=== PATIENT | male | born 1980 | race Caucasian/White ===

== ENCOUNTER 2021-02-14 13:33 | Emergency (ER) | payer MEDICAID ==
[2021-02-14] MEDS ORDERED: Cyclobenzaprine 10 MG Tab PO ONE (13:34)
--- NOTE | 2021-02-14 14:10 | EDM.PDOC ---
ED HPI GENERAL MEDICAL PROBLEM - General Chief Complaint: Headache Stated Complaint: FALL AT HOME Time Seen by Provider: 02/14/21 14:07 Source of Information: Reports: Patient History Limitations: Reports: No Limitations - History of Present Illness INITIAL COMMENTS - FREE TEXT/NARRATIVE: 40-year-old male who was in the bucket of a front end stock unloader that was raised up about 10-11 feet so that he could reach something on the second story of his house to try to repair this area. He reports that his son was driving the front end stock unloader and the clutch slipped and the front end stock unloader lurched patient lost his balance and fell out of the front end stock unloader landing on his left side and striking his head on the ground. He states that he did catch himself and slow the fall but still fell directly on his left side and hit his head. There was no loss of consciousness for a brief period of time. Since then, he has noted pain in his head and also more pain in his left lower back and midline as well as left flank area. He did have loss of consciousness and he has pain along the left side of his head. And his left lower back and midline back as well as his left flank. He has some pain in the left hip but he is ambulatory. He rates that pain as a 8-9/10 and it is worse with movement. It is better when he is at rest. It is a sharp pain with muscle spasm. He has noted no blood in his urine. This occurred approximately 10:30 AM today. He reports the pain has improved somewhat since it began but the loss of consciousness the persisting pain in his lower back and his side and the length of the fall were very concerning to the patient and to his and that causes him to present for evaluation. He has had some nausea but no vomiting. He also reports that he is sweating but he states he "sweats all the time" and he doesn't really feel that this is much different. He has no localized area of weakness or numbness. He presents to the emergency department via private vehicle via his and he ambulates into the emergency department. There are no other associated signs or symptoms. There are no other modifying factors. Onset: Today (10:30 AM) Duration: Constant Location: Reports: Head, Back, Pelvis, Other (Left flank) Quality: Reports: Sharp, Other (Spasm-like) Severity: Moderate (to severe.) Improves with: Reports: Rest Worsens with: Reports: Other (Palpation), Movement Context: Reports: Trauma Associated Symptoms: Reports: No Other Symptoms Treatments PNEUMATIC PRESS HAND: Reports: NSAIDS (Ibuprofen) Lower Back Pain Score (Numeric/FACES): 9 - Related Data Allergies Allergy/AdvReac Type Severity Reaction Status Date / Time No Known Allergies Allergy Verified 02/14/21 14:00 Home Meds: Home Meds Cyclobenzaprine [Flexeril] 10 mg PO TID PRN #8 tab 02/14/21 [Rx] Past Medical History Psychiatric History: Reports: Anxiety, Depression - Past Surgical History HEENT Surgical History: Reports: Naso-Sinus Surgery, Tonsillectomy Social & Family History - Tobacco Use Tobacco Use Status *Q: (Nonsmoker) Tobacco Use Comment: Nonsmoker - Caffeine Use Caffeine Use: Reports: Soda - Alcohol Use Days Per Week of Alcohol Use: 3 Number of Drinks Per Day: 3 Total Drinks Per Week: 9 Date of Last Drink: 02/13/21 - Recreational Drug Use Recreational Drug Use: No - Living Situation & Occupation Living situation: Reports: 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 Denies: Abdominal Pain, Vomiting : Reports: Flank Pain. Denies: Discharge, Dysuria Musculoskeletal: Reports: Back Pain Skin: Reports: Other (The patient is sweating. It is not a cold sweat.). Denies: Rash, Wound Neurological: Reports: Headache, Other (He did have loss of consciousness for 5 seconds.) Hematologic/Lymphatic: Denies: Easy Bleeding, Easy Bruising ED EXAM, GENERAL - Physical Exam Exam: See Below Exam Limited By: No Limitations General Appearance: Alert, Moderate Distress (Appears in some pain. He is awake, alert and appropriately responsive and interactive.), Obese Eye Exam: Bilateral Eye: EOMI, Normal Inspection, PERRL Ears: Normal External Exam, Hearing Grossly Normal Ear Exam: Bilateral Ear: Auricle Normal Nose: Normal Inspection, Normal Mucosa, No Blood Throat/Mouth: Normal Voice, No Airway Compromise, Inflammation, Other (Moist membranes) Neck: Normal Inspection, Supple, Non-Tender Respiratory/Chest: No Respiratory Distress, Lungs Clear, Normal Breath Sounds, No Accessory Muscle Use, Chest Non-Tender Cardiovascular: Normal Peripheral Pulses, Regular Rate, Rhythm, No Murmur Peripheral Pulses: 2+: Radial (L), Radial (R) GI/Abdominal: Normal Bowel Sounds, Soft, Non-Tender Back Exam: Muscle Spasm, Paraspinal Tenderness (On left side), Vertebral Tenderness (Lower lumbar area), Other (No crepitus or bony deformity.) Extremities: Normal Inspection Neurological: Alert, Oriented, CN II-XII Intact, Normal Cognition, No Motor/Sensory Deficits Psychiatric: Normal Affect Skin Exam: Warm, Intact, Normal Color, No Rash, Other (Sweating.) Course - Vital Signs Last Recorded V/S: Last Vital Signs Temp 35.7 C L 02/14/21 13:33 Pulse 74 02/14/21 13:33 Resp 17 02/14/21 13:33 BP 142/86 H 02/14/21 13:33 Pulse Ox 98 02/14/21 13:33 - Orders/Labs/Meds Orders: Active Orders 24 hr Category Date Time Status Abdomen Pelvis w Cont [CT] Stat Exams 02/14/21 14:23 Taken Cervical Spine wo Cont [CT] Stat Exams 02/14/21 14:23 Taken Head wo Cont [CT] Stat Exams 02/14/21 14:23 Taken Lumbar Spine wo Cont [CT] Stat Exams 02/14/21 14:42 Taken Sodium Chloride 0.9% [Saline Flush] Med 02/14/21 14:22 Active 10 ml FLUSH ASDIRECTED PRN Peripheral IV Insertion Adult [OM.PC] Routine Oth 02/14/21 14:22 Ordered Medication Orders Sodium Chloride (Sodium Chloride 0.9% 10 Ml Syringe) 10 ml FLUSH ASDIRECTED PRN PRN Reason: Keep Vein Open Last Admin: 02/14/21 14:42 Dose: 10 ml Documented by: JOANIE Labs: Laboratory Tests 02/14/21 02/14/21 02/14/21 Range/Units 14:30 14:35 14:35 WBC 13.5 H (3.2-10.1) x10-3/uL RBC 5.28 (3.90-5.90) x10(6)uL Hgb 14.5 (12.9-17.7) g/dL Hct 44.6 (38.3-50.1) % MCV 84.4 (80.8-98.7) fL MCH 27.5 (27.0-33.3) pg MCHC 32.6 (28.7-35.3) g/dL RDW 14.0 (12.4-15.0) % Plt Count 263 (117-477) x10(3)uL MPV 8.5 (6.7-11.0) fL Neut % (Auto) 83.5 H (40.3-71.8) % Lymph % (Auto) 10.2 L (15.8-45.3) % [place] % (Auto) 5.4 L (5.5-15.2) % Eos % (Auto) 0.4 (0.1-6.8) % Baso % (Auto) 0.5 (0.3-3.8) % Neut # (Auto) 11.3 H (1.7-6.9) x10-3/uL Lymph # (Auto) 1.4 (0.5-4.5) x10-3/uL [place] # (Auto) 0.7 (0.0-1.2) x10-3/uL Eos # (Auto) 0.1 (0.0-0.6) x10-3/uL Baso # (Auto) 0.1 (0.0-0.3) x10-3/uL Sodium 142 (135-145) mmol/L Potassium 4.1 (3.5-5.3) mmol/L Chloride 105 (100-110) mmol/L Carbon Dioxide 29 (21-32) mmol/L BUN 15 (7-18) mg/dL Creatinine 1.4 H (0.70-1.30) mg/dL Est Cr Clr Drug Dosing 78.47 mL/min Estimated GFR (MDRD) 56 L (>60) BUN/Creatinine Ratio 10.7 (9-20) Glucose 154 H (80-116) mg/dL Calcium 9.3 (8.6-10.2) mg/dL Total Bilirubin 0.4 (0.1-1.3) mg/dL AST 25 (5-25) IU/L ALT 52 H (12-36) U/L Alkaline Phosphatase 114 H (56-112) IU/L Total Protein 7.6 (6.0-8.0) g/dL Albumin 4.2 (3.5-5.2) g/dL Globulin 3.4 g/dL Albumin/Globulin Ratio 1.2 Lipase (73-393) U/L Urine Color Yellow (YELLOW) Urine Appearance Clear (CLEAR) Urine pH 5.0 (5.0-6.5) Ur Specific [place] 1.025 (1.010-1.025) Urine Protein Trace (NEGATIVE) mg/dL Urine Glucose (UA) 100 H (NORMAL) mg/dL Urine Ketones Negative (NEGATIVE) mg/dL Urine Occult Blood Negative (NEGATIVE) Urine Nitrite Negative (NEGATIVE) Urine Bilirubin Negative (NEGATIVE) Urine Urobilinogen Normal (NEGATIVE) mg/dL Ur Leukocyte Esterase Negative (NEGATIVE) Urine RBC 0-5 (0-5) Urine WBC 0-5 (0-5) Ur Squamous Epith Cells Few H (NS,R,O) Urine Bacteria Few H (NS) 02/14/21 Range/Units 14:35 WBC (3.2-10.1) x10-3/uL RBC (3.90-5.90) x10(6)uL Hgb (12.9-17.7) g/dL Hct (38.3-50.1) % MCV (80.8-98.7) fL MCH (27.0-33.3) pg MCHC (28.7-35.3) g/dL RDW (12.4-15.0) % Plt Count (117-477) x10(3)uL MPV (6.7-11.0) fL Neut % (Auto) (40.3-71.8) % Lymph % (Auto) (15.8-45.3) % [place] % (Auto) (5.5-15.2) % Eos % (Auto) (0.1-6.8) % Baso % (Auto) (0.3-3.8) % Neut # (Auto) (1.7-6.9) x10-3/uL Lymph # (Auto) (0.5-4.5) x10-3/uL [place] # (Auto) (0.0-1.2) x10-3/uL Eos # (Auto) (0.0-0.6) x10-3/uL Baso # (Auto) (0.0-0.3) x10-3/uL Sodium (135-145) mmol/L Potassium (3.5-5.3) mmol/L Chloride (100-110) mmol/L Carbon Dioxide (21-32) mmol/L BUN (7-18) mg/dL Creatinine (0.70-1.30) mg/dL Est Cr Clr Drug Dosing mL/min Estimated GFR (MDRD) (>60) BUN/Creatinine Ratio (9-20) Glucose (80-116) mg/dL Calcium (8.6-10.2) mg/dL Total Bilirubin (0.1-1.3) mg/dL AST (5-25) IU/L ALT (12-36) U/L Alkaline Phosphatase (56-112) IU/L Total Protein (6.0-8.0) g/dL Albumin (3.5-5.2) g/dL Globulin g/dL Albumin/Globulin Ratio Lipase 181 (73-393) U/L Urine Color (YELLOW) Urine Appearance (CLEAR) Urine pH (5.0-6.5) Ur Specific [place] (1.010-1.025) Urine Protein (NEGATIVE) mg/dL Urine Glucose (UA) (NORMAL) mg/dL Urine Ketones (NEGATIVE) mg/dL Urine Occult Blood (NEGATIVE) Urine Nitrite (NEGATIVE) Urine Bilirubin (NEGATIVE) Urine Urobilinogen (NEGATIVE) mg/dL Ur Leukocyte Esterase (NEGATIVE) Urine RBC (0-5) Urine WBC (0-5) Ur Squamous Epith Cells (NS,R,O) Urine Bacteria (NS) Meds: Medications Generic Name Dose Route Start Last Admin Trade Name Freq PRN Reason Stop Dose Admin Sodium Chloride 10 ml 02/14/21 14:22 02/14/21 14:42 Sodium Chloride 0.9% 10 Ml Syringe FLUSH 10 ml ASDIRECTED PRN Administration Keep Vein Open Discontinued Medications Generic Name Dose Route Start Last Admin Trade Name Freq PRN Reason Stop Dose Admin Diazepam 5 mg 02/14/21 14:25 02/14/21 14:41 Diazepam 10 Mg/2 Ml Syringe IVPUSH 02/14/21 14:26 5 mg ONETIME ONE Administration Sodium Chloride 500 mls @ 999 mls/hr 02/14/21 14:25 02/14/21 14:41 Normal Saline IV 02/14/21 14:55 999 mls/hr .BOLUS ONE Administration Iopamidol 150 ml 02/14/21 14:42 02/14/21 15:16 Iopamidol 755 Mg/Ml 150 Ml Bottle IV 02/14/21 14:43 150 ml ONETIME ONE Administration Ondansetron HCl 4 mg 02/14/21 14:25 02/14/21 14:42 Ondansetron 4 Mg/2 Ml Sdv IVPUSH 02/14/21 14:26 4 mg ONETIME ONE Administration - Radiology Interpretation Free Text/Narrative:: CT scan of head showed no acute abnormality per the [facility] radiologist. CT scan of cervical spine showed no acute abnormality per the [facility] radiologist. CT scan of lumbar spine showed no acute abnormality per the [facility] radiologist. CT scan of abdomen and pelvis showed no acute abnormality per the [facility] radiologist. - Re-Assessments/Exams Free Text/Narrative Re-Assessment/Exam: 02/14/21 15:00: White blood cell count is 13.5. Hemoglobin is 14.5. The platelet count was normal. Sodium was 142. Potassium is 4.1. Bicarbonate is 29. BUN is 15 and creatinine is 1.4. Glucose is 154. Lipase was normal. ALT was 52 which is mildly elevated and a urinalysis was negative except it had some glucose. The patient is being sent for CT scan of his head, neck, abdomen and pelvis. He is being given Valium 5 mg IV and Zofran 4 mg IV. He is also being given a 500 mL bolus of normal saline. He is remaining hemodynamically and neurologically stable. 02/14/21 16:25: The CT scans of his head, neck, lower back, abdomen and pelvis were all reassuringly normal. He did have a slightly elevated blood glucose. This could represent glucose intolerance/early diabetes mellitus. He will need to follow-up with his primary provider about this. He reports that his pain is better and he has no more muscle spasm. He has remained hemodynamically and neurologically stable. He has been ambulatory without problems. I will send him with a take home pack of Flexeril and I will send an additional prescription to his pharmacy electronically. He can continue to take ibuprofen and Tylenol as needed for pain. He should have activity as tolerated but he should avoid any strenuous activity for the next week. I discussed all this with the patient and with his . I answered their questions. They felt comfortable with plan for discharge. Precautions and reasons for return to the emergency department were discussed with the patient and with his while the patient was in the emergency department and were detailed in the patient's discharge instructions. Departure - Departure Time of Disposition: 16:30 Disposition: Home, Self-Care 01 Condition: Good Clinical Impression: Injury resulting from fall from height, Contusion of lower back and pelvis, initial encounter Lumbar strain Qualifiers: Encounter type: initial encounter Qualified Code(s): S39.012A - Strain of muscle, fascia and tendon of lower back, initial encounter Mild concussion Qualifiers: Encounter type: initial encounter Loss of consciousness presence/duration: with LOC of 30 min or less Qualified Code(s): S06.0X1A - Concussion with loss of consciousness of 30 minutes or less, initial encounter Head contusion Qualifiers: Encounter type: initial encounter Contusion of head detail: unspecified part of head Qualified Code(s): S00.93XA - Contusion of unspecified part of head, initial encounter - Discharge Information Prescriptions: Cyclobenzaprine [Flexeril] 10 mg PO TID PRN #8 tab PRN Reason: Muscle pain or muscle spasm. Instructions: Concussion, Adult, [id number], Concussion, Adult, Contusion, [id number], Head Injury, Adult, [id number], Lumbosacral Strain Referrals: Giovanna Kim [employer] [Primary Care Provider] - Forms: ED Department Discharge Additional Instructions: All of your blood tests are reassuringly normal. Your urine test showed no evidence of infection or bleeding. The CT scans of your head, neck, abdomen and pelvis showed no fractures, no bleeding and no evidence of organ injury. You appear to have bruises and strains to your lower back. You do have a mild concussion. You should avoid strenuous activity for the next week. You can take Tylenol 1000 mg by mouth every 6 hours as needed for pain. You can also take ibuprofen 800 mg by mouth every 8 hours as needed for pain. Medication as prescribed for muscle pain and muscle spasm (Flexeril 10 mg). I did send you home with a take-home pack of this. I also sent a prescription to [facility] that you can hand picker if needed. Back to the emergency department for difficulty breathing, coughing up blood, urinating blood, abdominal pain, more than 2 episodes of vomiting or any other concerning signs or symptoms. Sepsis Event Note (ED) - Focused Exam Vital Signs: Vital Signs Temp Pulse Resp BP Pulse Ox 02/14/21 13:33 35.7 C L 74 17 142/86 H 98 - My Orders Last 24 Hours: My Active Orders 02/14/21 14:22 Sodium Chloride 0.9% [Saline Flush] 10 ml FLUSH ASDIRECTED PRN Peripheral IV Insertion Adult [OM.PC] Routine 02/14/21 14:23 Abdomen Pelvis w Cont [CT] Stat Cervical Spine wo Cont [CT] Stat Head wo Cont [CT] Stat 02/14/21 14:42 Lumbar Spine wo Cont [CT] Stat - Assessment/Plan Last 24 Hours: My Active Orders 02/14/21 14:22 Sodium Chloride 0.9% [Saline Flush] 10 ml FLUSH ASDIRECTED PRN Peripheral IV Insertion Adult [OM.PC] Routine 02/14/21 14:23 Abdomen Pelvis w Cont [CT] Stat Cervical Spine wo Cont [CT] Stat Head wo Cont [CT] Stat 02/14/21 14:42 Lumbar Spine wo Cont [CT] Stat
[2021-02-14] MEDS ORDERED: Sodium Chloride 0.9% 10 ML Syringe FLUSH PRN (14:22)
[2021-02-14] MEDS ORDERED: Sodium Chloride 0.9% 500 ML IV ONE (14:25)
[2021-02-14] MEDS ORDERED: Ondansetron 4 MG/2 ML SDV IVPUSH ONE (14:25)
[2021-02-14] MEDS ORDERED: Iopamidol 755 MG/ML 150 ML Bottle IV ONE (14:42)
== END 2021-02-14 16:50 | disposition home or self-care (01) ==
LOC: FB.ED 13:33
DX: S06.0X1A Concussion with loss of consciousness of 30 minutes or less, initial encounter (principal); S39.012A Strain of muscle, fascia and tendon of lower back, initial encounter; S00.93XA Contusion of unspecified part of head, initial encounter; E66.9 Obesity, unspecified; Z68.39 Body mass index [BMI] 39.0-39.9, adult; W17.89XA Other fall from one level to another, initial encounter; Y92.009 Unspecified place in unspecified non-institutional (private) residence as the place of occurrence of the external cause
CPT/HCPCS: 36415; 70450; 72125; 72131; 74177; 80053; 81001; 83690; 85025; 96374; 96375; 99284; A9270; J2405; J3360; J7040; Q9967

== ENCOUNTER 2024-05-24 06:20 | Day surgery (SDC) | payer BC, MEDICAID ==
[~2024-05-24 06:20] MED LIST: Sodium Chloride 0.9% 10 ML Syringe FLUSH PRN
[2024-05-24] MEDS ORDERED: fentaNYL 100 MCG/2 ML SDV IV ONE (06:21)
[2024-05-24] MEDS ORDERED: Ketorolac 30 MG/ML SDV IVPUSH ONE (06:21)
[2024-05-24] MEDS ORDERED: Propofol 200 MG/20 ML SDV IV ONE (06:21)
[2024-05-24] MEDS ORDERED: Sugammadex Sodium 200 MG/2 ML VIAL IV ONE (06:21)
[2024-05-24] MEDS ORDERED: Ketamine 500 mg/10 ML MDV IV ONE (06:21)
[2024-05-24] MEDS ORDERED: Rocuronium 100 MG/10 ML MDV IV ONE (06:21)
[2024-05-24] MEDS ORDERED: dexmedeTOMIDine HCl 200 MCG/2 ML SDV IV ONE (06:21)
[2024-05-24] MEDS ORDERED: Midazolam 1 MG/ML 2 ML SDV IV ONE (06:21)
[2024-05-24] MEDS: Lactated Ringers 1,000 ML IV SCH (07:07)
[2024-05-24] MEDS ORDERED: ceFAZolin 2 GM Vial IVPUSH ONE (07:20)
[2024-05-24] MEDS: Bupivacaine 0.5% 30 ML SDV INJECT ONE (07:58)
[2024-05-24] MEDS: Lidocaine 1% with EPINEPHrine 1:100,000 20 ML MDV INJECT ONE (07:59)
== END 2024-05-24 10:11 | disposition home or self-care (01) ==
LOC: FB.SDS 06:20
PROVIDERS: ATTEND Surgery
DX: K42.0 Umbilical hernia with obstruction, without gangrene (principal); Z79.899 Other long term (current) drug therapy; Z87.891 Personal history of nicotine dependence
CPT/HCPCS: 49592; J0665; J0690; J1885; J2250; J2704; J3010; J3490; J7120; 00840